=== PATIENT | male | born 1975 | race African-American/Black ===

== ENCOUNTER 2018-08-07 17:19 | Emergency (ER) | payer SELFPAY ==
[~2018-08-07] VITALS: Ht 170.2 cm; Wt 72.0 kg
[2018-08-07] MEDS ORDERED: IBUPROFEN 600MG TABLET PO ONE (21:15)
[2018-08-07] MEDS ORDERED: ACETAMINOPHEN 325MG TABLET PO ONE (21:15)
[2018-08-07 22:40] VITALS: BP 135/64
== END 2018-08-07 22:40 | disposition home or self-care (01) ==
LOC: ER 17:19
DX: M25.552 Pain in left hip (principal); M25.551 Pain in right hip; G89.29 Other chronic pain; I10 Essential (primary) hypertension; F17.210 Nicotine dependence, cigarettes, uncomplicated
CPT/HCPCS: 73522; 99283